=== PATIENT | female | born 1980 | race Caucasian/White ===

== ENCOUNTER 2017-05-15 14:19 | Emergency (ER) | payer BC, OTHER ==
[2017-05-15 14:38] LABS: BASOPHILS # (AUTO) 0.1 10^3/uL (0.0-0.1); BASOPHILS % (AUTO) 0.7 %; EOSINOPHILS # (AUTO) 0.1 10^3/uL (0.0-0.7); EOSINOPHILS % (AUTO) 1.4 %; HGB - HEMOGLOBIN 13.4 g/dL (12.0-16.0); LYMPHOCYTES # (AUTO) 1.8 10^3/uL (1.5-3.5); LYMPHOCYTES % (AUTO) 23.3 %; MEAN CORPUSCULAR HEMOGLOBIN 32.8 pg (27.0-31.0); MEAN CORPUSCULAR HGB CONC 34.5 g/dL (32.0-36.0); MEAN PLATELET VOLUME 7.4 fL (7.9-10.8); MONOCYTES # (AUTO) 0.6 10^3/uL (0.0-1.0); MONOCYTES % (AUTO) 7.9 %; NEUTROPHILS # (AUTO) 5.2 10^3/uL (1.5-6.6); NEUTROPHILS % (AUTO) 66.7 %; PLT - PLATELET COUNT 311 10^3/uL (130-450); RED BLOOD COUNT 4.08 10^6/uL (4.20-5.40); RED CELL DISTRIBUTION WIDTH 12.5 % (12.0-15.0); WHITE BLOOD COUNT 7.7 x10^3/uL (4.8-10.8)
[2017-05-15 14:54] LABS: ALBUMIN 4.9 g/dL (3.2-5.5); BILIRUBIN,TOTAL 0.6 mg/dL (0.2-1.0); CALCIUM 9.6 mg/dL (8.5-10.3); CREATININE 0.7 mg/dL (0.4-1.0); TOTAL PROTEIN 7.4 g/dL (6.7-8.2)
[2017-05-15] MEDS ORDERED: KETOROLAC 60 MG/2 ML VIAL IM STA (15:22)
[2017-05-15] MEDS ORDERED: ONDANSETRON ODT 4 MG TABLET TL STA (15:22)
--- NOTE | 2017-05-15 15:23 | ED Physician Documentation ---
PD HPI ABD PAIN - Stated complaint Stated Complaint: ABD PX - Chief complaint Chief Complaint: Abd Pain - History obtained from History obtained from: Patient - History of Present Illness Timing - onset: Other (She has a history of ovarian cysts. Last menses was about 2 weeks ago. She developed left pelvic pain 2 nights ago which got better and then got worse again associated with nausea and urinary frequency and burning. No fevers.) Review of Systems Ten Systems: 10 systems reviewed and negative Constitutional: denies: Fever, Myalgias Cardiac: denies: Chest pain / pressure, Palpitations Respiratory: denies: Dyspnea, Cough GI: reports: Abdominal Pain, Nausea. denies: Diarrhea PD PAST MEDICAL HISTORY - Past Medical History Past Medical History: Yes [employer]: Ovarian cysts - Present Medications Home Medications: Ambulatory Orders Medication Instructions Recorded Confirmed HYDROcod/ACETAM 5/325 [[place] 5/325] 1 - 2 ea PO Q6H PRN #15 tablet 05/15/17 - Allergies Allergies/Adverse Reactions: Allergies Allergy/AdvReac Type Severity Reaction Status Date / Time No Known Drug Allergies Allergy Verified 05/15/17 14:26 - Social History Does the pt smoke?: No PD ED PE NORMAL - Vitals Vital signs reviewed: Yes - General General: Alert and oriented X 3, No acute distress - HEENT HEENT: PERRL, EOMI - Neck Neck: Supple, no meningeal sign, No bony TTP - Cardiac Cardiac: RRR, No murmur - Respiratory Respiratory: No respiratory distress, Clear bilaterally - Abdomen Abdomen: Normal bowel sounds, Soft, Non tender - Back Back: No CVA TTP, No spinal TTP - Derm Derm: Normal color, Warm and dry, No rash - Extremities Extremities: No edema, No calf tenderness / cord - Neuro Neuro: Alert and oriented X 3, Normal speech - Psych Psych: Normal mood, Normal affect Results - Vitals Vitals: Vital Signs - 24 hr 05/15/17 05/15/17 05/15/17 14:23 16:41 18:30 Temperature 36.8 C 36.3 C L Heart Rate 90 75 64 Respiratory 20 15 12 Rate Blood Pressure 137/64 H 112/63 122/79 O2 Saturation 100 96 100 Oxygen O2 Source Room air - Labs Labs: Laboratory Tests 05/15/17 05/15/17 05/15/17 14:33 14:33 14:56 WBC 7.7 RBC 4.08 L Hgb 13.4 Hct 38.7 MCV 95.0 MCH 32.8 H MCHC 34.5 RDW 12.5 Plt Count 311 MPV 7.4 L Neut # 5.2 Lymph # 1.8 [place] # 0.6 Eos # 0.1 Baso # 0.1 Absolute Nucleated RBC 0.00 Nucleated RBC % 0.0 Sodium 137 Potassium 4.0 Chloride 101 Carbon Dioxide 26 Anion Gap 10.0 BUN 17 Creatinine 0.7 Estimated GFR (MDRD) 95 Glucose 96 Calcium 9.6 Total Bilirubin 0.6 AST 15 ALT 16 Alkaline Phosphatase 49 Total Protein 7.4 Albumin 4.9 Globulin 2.5 Albumin/Globulin Ratio 2.0 Lipase 30 Urine Color YELLOW Urine Clarity HAZY Urine pH 6.0 Ur Specific [place] <=1.005 Urine Protein NEGATIVE Urine Glucose (UA) NEGATIVE Urine Ketones NEGATIVE Urine Occult Blood SMALL H Urine Nitrite NEGATIVE Urine Bilirubin NEGATIVE Urine Urobilinogen 0.2 (NORMAL) Ur Leukocyte Esterase NEGATIVE Urine RBC 0-5 Urine WBC 0-3 Ur Squamous Epith Cells NONE SEEN Urine Bacteria None Seen Ur Microscopic Review INDICATED Urine Culture Comments NOT INDICATED Urine HCG, Qual NEGATIVE - Rads (name of study) Pelvic sono Radiology: EMP read contemporaneously (L ov cyst) PD MEDICAL DECISION MAKING - ED course ED course: 37-year-old woman presents with left pelvic pain which is due to a subsequently identified left ovarian cyst. She had Toradol here given that she was driving but did request some and a little stronger for home use. No evidence of torsion. Departure - Departure Disposition: 01 Home, Self Care Clinical Impression: Left ovarian cyst Condition: Good Record reviewed to determine appropriate education?: Yes Instructions: ED Cyst Ovarian Follow-Up: [facility] [Provider Group] (2 weeks and suggest repeat ultrasound in 6 weeks) Prescriptions: HYDROcod/ACETAM 5/325 [[place] 5/325] 1 - 2 ea PO Q6H PRN #15 tablet PRN Reason: Pain Comments: Follow-up with your mumps developer, I suggest repeat ultrasound in 6 weeks. Return if worse. Do not drink or drive while taking narcotic pain medication. Note that many narcotic pain relievers also contain Tylenol/acetaminophen. Please ensure that your total dose of acetaminophen from all sources does not exceed 3 g (3000 mg) per day. You may get constipated while on this medication. Take a stool softener such as Colace twice a day while you are on it. Also add an [id number] laxative such as senna or MiraLAX on any day that you do not have a bowel movement. If you received a narcotic pain medication or sedative while in the emergency department, do not drive for the next 24 hours. Discharge Date/Time: 05/15/17 19:26
[2017-05-15 15:29] LABS: BILIRUBIN,URINE NEGATIVE (NEGATIVE); GLUCOSE, URINE (UA) NEGATIVE (NEGATIVE); KETONES,URINE (UA) NEGATIVE (NEGATIVE); LEUKOCYTE ESTERASE, URINE NEGATIVE (NEGATIVE); NITRITE,URINE NEGATIVE (NEGATIVE); OCCULT BLOOD,URINE SMALL (NEGATIVE); PROTEIN,URINE NEGATIVE (NEGATIVE); UROBILINOGEN,URINE 0.2 (NORMAL) E.U./dL (NORMAL)
[2017-05-15 15:31] LABS: CLARITY,URINE HAZY (CLEAR); HCG UR QUAL NEGATIVE
[2017-05-15 15:37] LABS: BACTERIA,URINE None Seen /HPF (None Seen); RBC,URINE 0-5 /HPF (0-5); SQUAMOUS EPITHELIAL CELL,UR NONE SEEN (<= Few)
[2017-05-15 18:31] VITALS: BP 122/79
[2017-05-15] MEDS ORDERED: HYDROcod/ACET 5/325 Prepack 6 PO STA (18:42)
--- NOTE | 2017-05-15 19:01 | Ultrasound Report ---
EXAM: PELVIC ULTRASOUND EXAM DATE: 05/15/2017 06:19 PM. CLINICAL HISTORY: Pelvic pain, left greater than right. LMP 05/04/2017. G1, P 1. COMPARISON: None. TECHNIQUE: Realtime transabdominal pelvic scan performed to identify the uterus and adnexa and as an overview of other pelvic structures, followed by transvaginal scan to provide greater detail of the u terus and adnexa, with static image documentation. FINDINGS: Uterus: 6.3 x 3.5 x 4.4 cm, volume 50.7 cc. Retroverted position. Normal overall size and echotexture . Masses: None. Endometrium: 7-8 mm. No endometrial masses. No increased vascularity. Cervix: Unremarkable. Right Ovary: 3.9 x 2.1 x 2.4 cm, volume 10.3 cc. Normal echotexture. Normal blood flow. Slightly thic k walled 2.0 x 1.5 x 1.5 cm lesion with peripheral vascularity noted within the left ovary. Adjacent subcentimeter follicles are present. Left Ovary: 2.9 x 1.7 x 2.9 cm, volume 7.5 cc. Normal echotexture. Normal blood flow. Normal subcenti meter follicles. Free Fluid: Small to moderate volume of pelvic free fluid. Other: None. IMPRESSION: 1. Normal sonographic appearance of uterus and endometrium. 2. Left ovary 2.0 cm lesion most likely representing a collapsing follicular/corpus luteal cyst. 3. Small to moderate volume of pelvic free fluid. [facility] Referring Provider Line: [phone] SITE ID: [id number]
== END 2017-05-15 19:26 | disposition home or self-care (01) ==
LOC: ED 14:19
DX: N83.202 Unspecified ovarian cyst, left side (principal)
CPT/HCPCS: 36415; 76830; 76856; 80053; 81001; 81025; 83690; 85025; 93975; 96372; 99283; Q0162; 81003; 87086

== ENCOUNTER 2019-05-15 09:14 | Outpatient (CLI) | payer OTHER ==
[2019-05-15 17:21] LABS: BASOPHILS % (AUTO) 0.6 %; EOSINOPHILS # (AUTO) 0.1 10^3/uL (0.0-0.7); HGB - HEMOGLOBIN 12.6 g/dL (12.0-16.0); LYMPHOCYTES # (AUTO) 1.5 10^3/uL (1.5-3.5); LYMPHOCYTES % (AUTO) 22.4 %; MEAN CORPUSCULAR HEMOGLOBIN 32.1 pg (27.0-31.0); MEAN CORPUSCULAR HGB CONC 31.9 g/dL (32.0-36.0); MEAN CORPUSCULAR VOLUME 100.5 fL (81.0-99.0); MEAN PLATELET VOLUME 9.9 fL (7.9-10.8); MONOCYTES # (AUTO) 0.7 10^3/uL (0.0-1.0); MONOCYTES % (AUTO) 9.9 %; NEUTROPHILS # (AUTO) 4.2 10^3/uL (1.5-6.6); NEUTROPHILS % (AUTO) 64.6 %; PLT - PLATELET COUNT 335 10^3/uL (130-450); RED BLOOD COUNT 3.93 10^6/uL (4.20-5.40); RED CELL DISTRIBUTION WIDTH 11.9 % (12.0-15.0); WHITE BLOOD COUNT 6.6 x10^3/uL (4.8-10.8)
[2019-05-15 17:45] LABS: ALBUMIN 4.5 g/dL (3.2-5.5); ALBUMIN/GLOBULIN RATIO 2.3 (1.0-2.2); BILIRUBIN,TOTAL 0.8 mg/dL (0.2-1.0); CALCIUM 9.2 mg/dL (8.5-10.3); CREATININE 0.7 mg/dL (0.4-1.0); TOTAL PROTEIN 6.5 g/dL (6.7-8.2)
== END 2019-05-15 09:15 | disposition home or self-care (01) ==
LOC: LAB.S 09:14
PROVIDERS: ATTEND Physician Assistant Medical
DX: Z51.81 Encounter for therapeutic drug level monitoring (principal); Z79.899 Other long term (current) drug therapy
CPT/HCPCS: 36415; 80053; 85025

== ENCOUNTER 2019-06-20 09:47 | Outpatient (CLI) | payer OTHER ==
--- NOTE | 2019-06-20 16:11 | MRI Report ---
Reason: CERVICAL RADICULOPATHY,CERVICAL OSTEOARTHRITIS Procedure Date: 06/20/2019 Accession Number: [id number] / [id number] Procedure: MRI - Cervical Spine W/O CPT Code: Final Report FULL RESULT: EXAM: MRI CERVICAL SPINE WITHOUT CONTRAST EXAM DATE: 06/20/2019 10:52 AM. CLINICAL HISTORY: Cervical radiculopathy, cervical osteoarthritis. Pain under the left scapula. Numbness down to the fingertips. COMPARISONS: MRI CERVICAL SPINE 08/26/2015 9:31 AM. TECHNIQUE: Multiplanar, multisequence T1-weighted and fluid-sensitive sequences of the cervical spine without contrast. Other: None. FINDINGS: Neurologic Structures: The visualized posterior fossa structures are unremarkable. No signal abnormality in the visualized spinal cord. The spinal canal is adequate. Alignment: No scoliosis or spondylolisthesis. Bone Marrow: No gross fractures or bone lesions. No marrow edema. Interspace Levels/Facets: C1-C2: Unremarkable. C2-C3: Unremarkable. C3-C4: Unremarkable. C4-C5: Unremarkable. C5-C6: Mild loss of disk space height and T2 hypointense disk signal. Broad-based dorsal and medial foraminal disk protrusion. Mild degenerative uncovertebral changes seen bilaterally. Effacement and flattening of the thecal sac and spinal cord is noted. Moderate canal stenosis. Moderate bilateral foraminal stenosis. No significant change. C6-C7: Patchy T2 hypointense disk signal is seen. Mild broad-based dorsal and dorsal lateral subligamentous disk protrusion. Left-sided degenerative uncovertebral change. Effacement of the thecal sac is noted with mild canal stenosis. Mild left foraminal stenosis. No change. C7-T1: Unremarkable. Musculature: Normal. No edema or fatty atrophy. Other: The paravertebral and prevertebral soft tissues are normal. IMPRESSION: 1. C5-C6: Mild degenerative disk and uncovertebral change. Moderate canal stenosis. Bilateral moderate foraminal stenosis. No change. 2. C6-C7: Mild degenerative disk change. Mild canal stenosis. Left mild foraminal stenosis. No change. 3. Normal appearance to the cervical spinal cord. [facility]
== END 2019-06-20 09:48 | disposition home or self-care (01) ==
LOC: DI 09:47
PROVIDERS: ATTEND Physician Assistant Medical
DX: M50.222 Other cervical disc displacement at C5-C6 level (principal); M48.02 Spinal stenosis, cervical region
CPT/HCPCS: 72141

== ENCOUNTER 2020-02-19 07:00 | Outpatient (CLI) | payer OTHER | END 2020-02-19 23:59 | disposition home or self-care (01) | LOC: LAB.R 07:00 | PROVIDERS: ATTEND Physician Assistant Medical | DX: H44.002 Unspecified purulent endophthalmitis, left eye (principal) | CPT/HCPCS: 87081; 87640 ==

== ENCOUNTER 2020-10-12 12:56 | Outpatient (CLI) | payer OTHER ==
--- NOTE | 2020-10-12 13:22 | XRAY Report ---
PROCEDURE: Ribs w/PA Chest LT INDICATIONS: RIB PAIN LEFT TECHNIQUE: 3 views of the right ribs were acquired, along with a single view chest. COMPARISON: None FINDINGS: Surgical changes and devices: None. Bones and chest wall: No fractures or dislocations. No suspicious bony lesions. Overlying soft tis sues appear unremarkable. Lungs and pleura: No pleural effusions or pneumothorax. Lungs appear clear. Mediastinum: Mediastinal contours appear normal. Heart size is normal. IMPRESSION: Source of reported left-sided rib pain is not found. Nuclear medicine bone scan may be warranted for more accurate assessment in detection of possible rib fracture. Reviewed by: Dino Schreiber MD on 10/12/2020 12:21 PM REJI Approved by: Dino Schreiber MD on 10/12/2020 12:21 PM REJI Station ID: [id number]
== END 2020-10-12 12:57 | disposition home or self-care (01) ==
LOC: DI.S 12:56
PROVIDERS: ATTEND Physician Assistant Medical
DX: R07.81 Pleurodynia (principal)

== ENCOUNTER 2022-07-02 07:06 | Outpatient (CLI) | payer OTHER ==
[2022-07-02 14:23] LABS: BASOPHILS % (AUTO) 0.6 %; EOSINOPHILS # (AUTO) 0.1 10^3/uL (0.0-0.7); EOSINOPHILS % (AUTO) 1.4 %; HGB - HEMOGLOBIN 13.5 g/dL (12.0-16.0); LYMPHOCYTES # (AUTO) 1.2 10^3/uL (1.5-3.5); LYMPHOCYTES % (AUTO) 18.2 %; MEAN CORPUSCULAR HEMOGLOBIN 31.8 pg (27.0-31.0); MEAN CORPUSCULAR HGB CONC 32.1 g/dL (32.0-36.0); MEAN CORPUSCULAR VOLUME 99.1 fL (81.0-99.0); MEAN PLATELET VOLUME 9.6 fL (7.9-10.8); MONOCYTES # (AUTO) 0.7 10^3/uL (0.0-1.0); MONOCYTES % (AUTO) 11.1 %; NEUTROPHILS # (AUTO) 4.3 10^3/uL (1.5-6.6); NEUTROPHILS % (AUTO) 68.5 %; PLT - PLATELET COUNT 379 10^3/uL (130-450); RED BLOOD COUNT 4.24 10^6/uL (4.20-5.40); RED CELL DISTRIBUTION WIDTH 12.7 % (12.0-15.0); WHITE BLOOD COUNT 6.3 x10^3/uL (4.8-10.8)
[2022-07-02 15:52] LABS: ALBUMIN 4.4 g/dL (3.2-5.5); ALBUMIN/GLOBULIN RATIO 1.7 (1.0-2.2); ALKALINE PHOSPHATASE 49 IU/L (42-121); ALT ALANINE AMINOTRANSFERASE 14 IU/L (10-60); AST ASPARTATE AMINOTRANSFERASE 15 IU/L (10-42); BUN - BLOOD UREA NITROGEN 6 mg/dL (6-20); CALCIUM 9.4 mg/dL (8.5-10.3); CARBON DIOXIDE - CO2 28 mmol/L (21-32); CHLORIDE 102 mmol/L (101-111); CHOL/HDL RATIO 1.9 (<4.4); CHOLESTEROL 150 mg/dL; CREATININE 0.8 mg/dL (0.4-1.0); GFR - MDRD 79 (>89); GLUCOSE 122 mg/dL (70-100); HDL CHOLESTEROL 79 mg/dL; LDL CHOLESTEROL,CALCULATED 62 mg/dL; LDL/HDL RATIO 0.8 (<4.4); POTASSIUM 4.2 mmol/L (3.5-5.0); SODIUM 137 mmol/L (135-145); TRIGLYCERIDES 47 mg/dL; VLDL CHOLESTEROL 9 mg/dL
[2022-07-02 16:13] LABS: THYROID STIMULATING HORMONE 0.59 uIU/mL (0.34-5.60)
== END 2022-07-02 07:07 | disposition home or self-care (01) ==
LOC: LAB.S 07:06
PROVIDERS: ATTEND Registered Nurse
DX: Z79.899 Other long term (current) drug therapy (principal); Z13.220 Encounter for screening for lipoid disorders; Z13.29 Encounter for screening for other suspected endocrine disorder
CPT/HCPCS: 36415; 80053; 80061; 83721; 84443; 85025

== ENCOUNTER 2022-11-01 10:50 | Outpatient (CLI) | payer OTHER ==
--- NOTE | 2022-11-01 13:12 | SLEEP CARE CONSULTATION ---
Information from patient questionnaire entered by Martínez Leong. I have reviewed and concur with the information entered by Martínez Leong. This document represents the service I personally performed and the decisions made by me, Vikki Tejada MD, [facility]. History of Present Illness Service Date and Time: 11/01/2022 1050 Reason for Visit: New patient Chief Complaint: reports: Insomnia, Excessive daytime sleepiness, Frequent awakenings at night Date of Onset: Usual bedtime: 10PM Time it takes to fall asleep: NOT LONG Snores at night: No Observed to quit breathing while asleep: Yes Number of times waking at night: 2-4 Reasons for waking at night: reports: Other (UNKNOWN) Toss, Turn, or Twitch while sleeping: No Recalls having dreams: No Usually gets out of bed at: 5AM Feels refreshed in the morning: No Morning headache: Yes Sleepy or fatigued during the day: Yes Takes day naps: No Dreams during day naps: No Prior sleep studies: No Additional HPI information: I have the pleasure of seeing Ms. Thomas today regarding the possibility of her having obstructive sleep apnea. As you know, she is a 42-year-old lady who complains of insomnia started 6 months ago. She said it started with her taking an antibiotic for her acne. Her main concern is waking up early and unable to fall back asleep. Prior to the insomnia, she went to bed at 11 pm and got up at 7 am. Now she goes to bed the same time and wakes up at 5 am. She does not get out of bed until 7 am. She falls asleep readily at the beginning of the night. She has been taking trazodone for 2 years because she has had shoulder pain. The patient tells me that she normally goes to bed around 11 pm, and it takes her approximately just a few minutes to fall asleep. She has not been told that she snores loudly or irregularly at night. She has never been observed to stop breathing in her sleep. Her sleeps in a separate room because he twitches a lot. She can recall waking up on the average of 0 1 time during the night. Most of the time she wakes up because of having to use the bathroom. She has never awakened because of her own snoring, choking, or having to gasp for air. There is not a lot of tossing and turning in her sleep. She usually does not have a morning headache. During the day she complains of feeling sleepy and fatigued. Her score on [place] Sleepiness Scale is 12 out of 24. She never has fallen asleep while driving nor has had any accident due to sleepiness. She usually does not take naps during the day. She denies having impaired concentration during the day. 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 Patient is and lives in [place]. Allergies and Home Medications Drug allergies reviewed: Yes Home medication list reviewed: Yes Allergy and home medication list: Allergies No Known Drug Allergies Allergy (Verified 05/15/17 14:26) Review of Systems Cardiovascular: denies: high blood pressure, palpitations, chest pain, irregular heart rate or pulse, leg or foot swelling, have to sleep sitting up, other Respiratory: denies: shortness of breath, wheeze, sputum production, chronic cough, other Gastrointestinal: denies: heartburn, difficulty swallowing, nausea, vomitting, diarrhea, abdominal pain, other Urinary: denies: incontinence, frequency, urgency, impotence, other Neurological: denies: headaches, seizure, head trauma, disorientation, speech dysfunction, gait or balance problems, fainting or unconsciousness, other Psychiatric: reports: anxiety Ear/Nose/Throat: denies: nasal congestion, sinus problems, nose bleeds, dry mouth/throat, hoarseness, injury to nose, tonsillectomy, wisdom teeth removed, other Endocrine: denies: thyroid disease, history of goiter, sluggishness, too hot or cold, excessive thirst, increased appetite, increased urination, unexplained weakness, other Musculoskeletal: denies: joint pain, neck pain, back pain, joint swelling, muscle pain or cramping, mobility problems, other Immunologic: denies: sneezing, rash, itching, allergies to food or environment, other Physical Exam Vital signs obtained and entered by: MARTÍNEZ Laguna MA Blood Pressure: 100/60 (LEFT ARM) Cuff size: regular Heart Rate: 78 O2 Saturation: 99 Height: 5 ft 3 in Weight: 129 lb 12.8 oz Body Mass Index: 23.0 BMI Classification: Normal Neck circumference: 12.75 Mood/affect: normal HEENT: No craniofacial malformation Nostrils: patent to airflow Turbinates: normal Septum: midline Mouth and throat: narrow oropharynx Soft palate: long Hard palate: normal Uvula: normal Uvula visualization: 50% Mallampati Class II Tongue: normal in size Tonsils: small Chin and jaw: normal size and position Neck: normal w/o lymphadenopathy or thyromegaly Heart: regular rate and rhythm Lungs: clear bilaterally Extremities: no edema or clubbing Neurologic: intact Impression and Plan IMPRESSION: 1. Insomnia, started 6 months ago. The etiology is unclear. According to her sleep diary, she is getting on an average of 5 hours of sleep a night because she wakes at 5 am. Cognitive behavior therapy (CBTi) was performed. First, I reassured her that she is getting adequate sleep. She most likely sleep more than she thinks. I suspect that she falls back asleep between 5 and 7 am. Because she claims that she is getting no more than 5 hours, we agree that 6 hours would be an improvement. Therefore, I advise her to maintain her bedtime at 11 pm and get out of bed by 5 am (should not be too hard for her because she claims that she does not fall back asleep after 5 am anyway). Once she can sleep through the 6 hours, then after about 2 weeks, she can get out of bed a little later ta 5:30 am. A sleep study is not necessary at this time and the patient has small children at home to take care of at night. Plan: 1. Maintain a regular wake up time and spend no more than 6 hours in bed at night. Avoid naps. The patient will be in bed 11 pm 5 am. 2. Take gabapentin at noon and evening. 3. Return in one month. Follow up with Sleep Care in: 1-2 months Visit Type: In Office Time Spent with Patient (minutes): 15 Provider Statement: I spent 100% of the Face to Face Visit with the patient with greater than 50% spent counseling the patient and coordination of care.
[2022-11-01 13:18] VITALS: BP 100/60
== END 2022-11-01 10:51 | disposition home or self-care (01) ==
LOC: SC 10:50
PROVIDERS: ATTEND Internal Medicine Pulmonary Disease
DX: G47.00 Insomnia, unspecified (principal)
CPT/HCPCS: 99202; 99212